=== PATIENT | male | born 1990 | race Caucasian/White ===

== ENCOUNTER 2025-03-06 18:01 | Emergency (ER) | payer OTHER ==
[2025-03-06] MEDS: Silver Nitrate Applicator Each TOP ONE (20:24)
[2025-03-06] MEDS: Silver Nitrate Applicator Each ONE (20:27)
== END 2025-03-06 20:45 | disposition home or self-care (01) ==
LOC: JP.ED 18:01
DX: S61.011A Laceration without foreign body of right thumb without damage to nail, initial encounter (principal); Z79.899 Other long term (current) drug therapy; Z87.891 Personal history of nicotine dependence; W26.8XXA Contact with other sharp object(s), not elsewhere classified, initial encounter; Y93.89 Activity, other specified
CPT/HCPCS: 99282